=== PATIENT | male | born 1990 | race Caucasian/White ===

== ENCOUNTER 2024-04-04 13:44 | Emergency (ER) | payer OTHER ==
--- NOTE | 2024-04-04 14:26 | ED ---
Skin/Abscess/FB HPI - General Source: patient, RN notes reviewed Mode of arrival: ambulatory Limitations: no limitations - History of Present Illness MD complaint: foreign body <Jacqueline Spivey - Last Filed: 04/04/24 14:31> <Glen Aguayo - Last Filed: 04/04/24 17:45> - General Chief complaint: Skin/Abscess/Foreign Body Stated complaint: Foreign obj.R arm Time Seen by Provider: 04/04/24 14:10 - History of Present Illness Initial comments: Quick Note: This is a 33-year-old male who presents to the emergency department for a broken needle in his arm. States that he was using fentanyl this morning and the needle broke off in his right antecubital fossa. (Jacqueline Spivey) Dictation was produced using [employer] dictation software. please excuse any grammatical, word or spelling errors. Chief Complaint: 33-year-old male with foreign body in the right forearm History of Present Illness: Patient 33-year-old male he is an IV drug user. Yesterday he was using IV drugs when he used a dirty needle. He states he inject himself with drugs. He pulled the needle out and noticed that piece of the needle was missing. Patient denies any numbness ting paresthesias to the distal extremity. The ROS documented in this emergency department record has been reviewed and confirmed by me. Those systems with pertinent positive or negative responses have been documented in the HPI. All other systems are other negative and/or noncontributory. (Glen Aguayo) - Related Data Previous Rx's Medication Instructions Recorded Cephalexin [Keflex] 500 mg PO Q6HR 5 Days #20 cap 04/04/24 Allergies Allergy/AdvReac Type Severity Reaction Status Date / Time No Known Allergies Allergy Verified 04/04/24 14:27 Review of Systems ROS Other: All systems not noted in ROS Statement are negative. <Jacqueline Spivey - Last Filed: 04/04/24 14:31> ROS Other: All systems not noted in ROS Statement are negative. <Glen Aguayo - Last Filed: 04/04/24 17:45> ROS Statement: Those systems with pertinent positive or pertinent negative responses have been documented in the HPI. General Exam <Jacqueline Spivey - Last Filed: 04/04/24 14:31> <Glen Aguayo - Last Filed: 04/04/24 17:45> - General Exam Comments Initial Comments: Visual Physical Exam Vital signs reviewed General: Well-appearing, nontoxic, no acute distress. Head: Normocephalic, atraumatic Eyes: PERRLA, EOMI ENT: Airway patent Chest: Nonlabored breathing Skin: No visual rash, normal skin tone Neuro: Alert and oriented 3 Musculoskeletal: No gross abnormalities (Jacqueline Spivey) General: Well-appearing, nontoxic, no acute distress. Head: Normocephalic, atraumatic Eyes: PERRLA, EOMI ENT: Airway patent Chest: Nonlabored breathing Skin: No visual rash, normal skin tone Neuro: Alert and oriented 3 Musculoskeletal: No gross abnormalities Right upper extremity: Injection site near the proximal anterior forearm (Glen Aguayo) Course <Glen Aguayo - Last Filed: 04/04/24 17:45> Vital Signs 04/04/24 14:27 Temperature 98.2 F Pulse Rate 67 Respiratory 16 Rate Blood Pressure 114/73 O2 Sat by Pulse 100 Oximetry - Reevaluation(s) Reevaluation #1: 04/04/24 17:43 On-call general surgery evaluated patient at the bedside states that no intervention needs to be performed at this time however if there is signs of infection at that point he would be guerrero at patient come to the emergency department or follow-up with medical customer service representative for treatment and foreign body removal. (Glen Aguayo) Procedures - Forgein Body Removal Soft Tissue Consent Obtained: verbal consent Site: other (Proximal forearm) Anesthetic Used: lidocaine 1% Foreign Body Suspected: Other (iv drug needle) Foreign Body Removed: no Foreign Body Removal Technique: Forceps Patient Tolerated Procedure: well <Glen Aguayo - Last Filed: 04/04/24 17:45> Medical Decision Making <Jacqueline Spivey - Last Filed: 04/04/24 14:31> <Glen Aguayo - Last Filed: 04/04/24 17:45> - Medical Decision Making I performed the QuickNote portion of this chart. Signed Jacqueline Spivey PA-C. (Jacqueline Spivey) Was pt. sent in by a medical professional or institution (DAVID Chandler, ECONOMETRICS PROFESSOR, urgent care, hospital, or snf...) When possible be specific @ -No Did you speak to anyone other than the patient for history (EMS, parent, family, police, friend...)? What history was obtained from this source @ -No Did you review nursing and triage notes (agree or disagree)? Why? @ -I reviewed and agree with nursing and triage notes Were old charts reviewed (outside hosp., previous admission, EMS record, old EKG, old radiological studies, urgent care reports/EKG's, snf records)? Report findings @ -No old charts were reviewed Differential Diagnosis (chest pain, altered mental status, abdominal pain women, abdominal pain men, vaginal bleeding, musculoskeletal, weakness, fever, dyspnea, syncope, headache, dizziness, GI bleed, back pain, seizure, CVA, palpatations, mental health)? @ -Abscess, foreign body, cellulitis EKG interpreted by me (3pts min.). @ -None done X-rays interpreted by me (1pt min.). @ -None done CT interpreted by me (1pt min.). @ -None done U/S interpreted by me (1pt. min.). @ -None done What testing was considered but not performed or refused? (CT, X-rays, U/S, labs)? Why? @ -None What meds were considered but not given or refused? Why? @ -None Was smoking cessation discussed for >3mins.? @ -No Were there social determinants of health that impacted care today? How? (Homelessness, low income, unemployed, alcoholism, drug addiction, transportation, low edu. Level, literacy, decrease access to med. care, fci, rehab)? @ -No Was there de-escalation of care discussed even if they declined (Discuss DNR or withdrawal of care, Hospice)? DNR status @ -No What co-morbidities impacted this encounter? (DM, HTN, Smoking, COPD, CAD, Cancer, CVA, ARF, Chemo, Hep., AIDS, mental health diagnosis, sleep apnea, morbid obesity)? @ -None Was patient admitted / discharged? Hospital course, mention meds given and route, prescriptions, significant lab abnormalities, going to OR and other pertinent info. @ -33-year-old male presents emergency department with embedded needle tip. Patient was using IV drugs yesterday when a piece of the needle broke off stuck in the skin. He tried to remove it himself however unsuccessful. Vital signs stable. Externally there does not appear to be any significant abnormalities. X-ray shows foreign body measuring approximately 9 mm in the antecubital fossa. Ultrasound was used and an attempt was made to remove the foreign body with no success. Case was discussed with general surgery, Dr. Edmond who will evaluate the patient at the bedside. Patient seen by Dr. Haile who recommended that no intervention be done at the moment. However he should seek medical attention should there be any signs of infection. patient is agreeable with plan. Did you discuss the management of the patient with other professionals (professionals i.e. , PA, ECONOMETRICS PROFESSOR, lab, RT, psych nurse, social media editor, skein tier, teacher, postal sorting officer, child welfare caseworker)? Give summary @ -No Was critical care preformed (if so, how long)? @ -No Undiagnosed new problem with uncertain prognosis? @ -No Drug Therapy requiring intensive monitoring for toxicity (Heparin, Nitro, Insulin, Cardizem)? @ -No Were any procedures done? @ -No Diagnosis/symptom? Acute, or Chronic, or Acute on Chronic? Uncomplicated (without systemic symptoms) or Complicated (systemic symptoms)? @ -Embedded metal foreign body in right forearm Side effects of treatment? @ -No Exacerbation, Progression, or Severe Exacerbation? @ -No Poses a threat to life or bodily function? How? (Chest pain, [place], [place], pneumonia, PE, COPD, DKA, ARF, appy, cholecystitis, CVA, Diverticulitis, Homicidal, Suicidal, threat to staff... and all critical care pts) @ -No (Glen Aguayo) Disposition <Jacqueline Spivey - Last Filed: 04/04/24 14:31> Is patient prescribed a controlled substance at d/c from ED?: No Time of Disposition: 16:56 <Glen Aguayo - Last Filed: 04/04/24 17:45> Clinical Impression: Foreign body (FB) in soft tissue Disposition: HOME SELF-CARE Condition: Fair Instructions (If sedation given, give patient instructions): Soft Tissue Foreign Body (ED) Additional Instructions: Seek admitted medical attention should any signs of infection be apparent at the site of foreign body embedded minute. Signs include erythema, drainage and pain Prescriptions: Cephalexin [Keflex] 500 mg PO Q6HR 5 Days #20 cap Referrals: Corbin Edmond DO [Medical Doctor] - 1-2 days
--- NOTE | 2024-04-04 14:27 | XR ---
EXAMINATION TYPE: XR forearm RT DATE OF EXAM: 04/04/2024 2:23 PM INDICATION: Patient age:Male; 33 years old; Reason for study: Broken needle in the antecubital fossa; PHH. pain COMPARISON: None TECHNIQUE: The right forearm was examined in AP and lateral projections. FINDINGS: No acute osseous pathology, soft tissue swelling or joint dislocations are seen. There is a 9 mm length curvilinear metallic foreign body identified within the antecubital fossa soft tissues best appreciated on the lateral view. This is approximately 5 mm from the skin surface. IMPRESSION: 1. No evidence of acute fracture. 2. Curvilinear 9 mm radiopaque foreign body identified within the antecubital fossa soft tissues con sistent with reported broken needle. [facility], , 04/04/2024 2:25 PM
[2024-04-04 14:31] VITALS: TEMP 98.2
[2024-04-04] MEDS: LIDOCAINE 2%-EPI 1:100,000 20 ML VIAL SQ STA (15:56)
[2024-04-04] MEDS: DIPH,PERTUS(ACELL)TETVAC-LF 0.5 ML VIAL IM ONE (17:09)
[2024-04-04 17:47] VITALS: BP 116/73; PULSE 68; RESP 18
== END 2024-04-04 17:54 | disposition home or self-care (01) ==
LOC: EC 13:44
DX: M79.5 Residual foreign body in soft tissue (principal); Z23 Encounter for immunization
CPT/HCPCS: 10120; 90471; 90715; 99283